=== PATIENT | male | born 1950 | race Caucasian/White ===

== ENCOUNTER 2017-09-27 09:51 | Emergency (ER) | payer MEDICARE, OTHER ==
[2017-09-27 10:11] VITALS: BP 148/84
[2017-09-27] MEDS ORDERED: Lidocaine 1% MPF* 2 ML VIAL INJ ONE (10:20)
--- NOTE | 2017-09-27 10:37 | UC ---
UC General HPI - HPI Summary HPI Summary: pt c/o swelling and soreness to R thumb x 1 week. poked it but nothing drained. no joint pain, DM or fever. does bite and pick nails. - History of Current Complaint Chief Complaint: UCSkin Stated Complaint: RT THUMB COMPLAINT Time Seen by Provider: 09/27/17 10:17 Hx Obtained From: Patient Onset/Duration: Gradual Onset Timing: Constant Pain Intensity: 0 Aggravating: nothing Alleviating: nothing Associated Signs & Symptoms: Negative: Fever - Allergy/Home Medications Allergies/Adverse Reactions: Allergies Allergy/AdvReac Type Severity Reaction Status Date / Time No Known Allergies Allergy Verified 09/27/17 10:11 Home Medications: Home Medications Aspirin 81 mg PO DAILY 09/27/17 [History Confirmed 09/27/17] Atorvastatin* [Lipitor 10 MG*] 10 mg PO DAILY 09/27/17 [History Confirmed ] Enalapril TAB* [Vasotec TAB*] 5 mg PO DAILY 09/27/17 [History Confirmed 09/27/17 ] Omeprazole CAP* [Prilosec CAP* 20 MG] 20 mg PO DAILY 09/27/17 [History Confirmed 09/27/17] PMH/Surg Hx/FS Hx/Imm Hx Endocrine History: Dyslipidemia Cardiovascular History: Hypertension GI/ History: Gastroesophageal Reflux - Surgical History Surgical History: None - Family History Known Family History: Positive: None - Social History Occupation: Retired Lives: With Family Alcohol Use: Daily Substance Use Type: None Smoking Status (MU): Former Smoker - Immunization History Hx Tetanus, Diphtheria Vaccination: Yes - less than 10 years ago Review of Systems Constitutional: Negative Skin: Other - red/swelling by nail R thumb Eyes: Negative ENT: Negative Respiratory: Negative Cardiovascular: Negative Gastrointestinal: Negative Genitourinary: Negative Motor: Negative Neurovascular: Negative Musculoskeletal: Negative Neurological: Negative Psychological: Negative Is Patient Immunocompromised?: No All Other Systems Reviewed And Are Negative: Yes Physical Exam Triage Information Reviewed: Yes Appearance: Well-Appearing Vital Signs: Initial Vital Signs Temp 98.3 F 09/27/17 10:06 Pulse 61 09/27/17 10:06 Resp 18 09/27/17 10:06 BP 148/84 09/27/17 10:06 Pulse Ox 100 09/27/17 10:06 Vital Signs Reviewed: Yes Eyes: Positive: Conjunctiva Clear ENT: Positive: Normal ENT inspection Neck: Positive: Supple, Nontender, No Lymphadenopathy Respiratory: Positive: Lungs clear, Normal breath sounds Cardiovascular: Positive: RRR, No Murmur Abdomen Description: Positive: Nontender, No Organomegaly, Soft Bowel Sounds: Positive: Present Musculoskeletal: Positive: ROM Intact Neurological: Positive: Alert Psychological: Positive: Age Appropriate Behavior Skin Exam: Normal, Other - Mild red and swelling around R thumb nail to side of thumb. s/v/m is intact. Procedures - Procedure Summary Procedure Summary: time out. site prep betadine. local with 30g and 0.4ml 1% lidocaine. tip of #11 blade used to make superficial stab and small amount of puss drained. irrigated sterile water. sterile technique used. pt tolerated well. only scant bleeding. bandage applied. v/m intact after. less erythema to side of finger but still small area of cellulitis. Course/Dx - Differential Dx - Multi-Symptom Provider Diagnoses: Paronychia R thumb. cellulitis side of R thumb. Discharge - Sign-Out/Discharge Documenting (check all that apply): Discharge/Admit/Transfer - Discharge Plan Condition: Improved Disposition: HOME Prescriptions: Cephalexin CAP* [Keflex CAP*] 500 mg PO TID #21 cap Patient Education Materials: Paronychia (ED), Cellulitis (ED) Referrals: Yenny Lindsay MD [Primary Care Provider] - 3 Days - Billing Disposition and Condition Condition: IMPROVED Disposition: HOME
== END 2017-09-27 10:44 | disposition home or self-care (01) ==
LOC: UCCORT 09:51
DX: L03.011 Cellulitis of right finger (principal); E78.5 Hyperlipidemia, unspecified; I10 Essential (primary) hypertension; K21.9 Gastro-esophageal reflux disease without esophagitis; Z87.891 Personal history of nicotine dependence
CPT/HCPCS: 10060; 99202; G0463